=== PATIENT | female | born 1960 | race Two or more races ===

== ENCOUNTER → 2019-06-19 12:07 | Outpatient (CLI) | payer OTHER | END | disposition home or self-care (01) | LOC: LAB 12:07 → RAD 12:07 | DX: M12.88 Other specific arthropathies, not elsewhere classified, other specified site (principal) ==

== ENCOUNTER 2019-06-19 12:59 | Outpatient (CLI) | payer OTHER | END 2019-06-19 13:14 | disposition home or self-care (01) | LOC: TOM 12:59 | DX: R51 Headache (principal) ==